=== PATIENT | female | born 1985 | race Caucasian/White ===

== ENCOUNTER 2022-08-12 02:42 | Emergency (ER) | payer SELFPAY ==
[~2022-08-12] VITALS: Ht 162.6 cm; Wt 54.5 kg
[2022-08-12 04:44] VITALS: BP 108/85
[2022-08-12] MEDS ORDERED: CEPH-585 PO (04:44)
[2022-08-12] MEDS ORDERED: cephalexin 250mg capsule PO ONE (04:45)
[2022-08-12] MEDS ORDERED: ibuprofen tablet 400 MG TABLET PO ONE (04:45)
== END 2022-08-12 04:54 | disposition home or self-care (01) ==
LOC: ER 02:43
DX: L03.116 Cellulitis of left lower limb (principal); M79.604 Pain in right leg
CPT/HCPCS: 99283